=== PATIENT | female | born 1995 | race Caucasian/White ===

== ENCOUNTER 2016-11-28 18:17 | Emergency (ER) | payer MEDICAID ==
[~2016-11-28] VITALS: Ht 167.6 cm; Wt 68.2 kg
[2016-11-28 18:19] VITALS: BP 133/85; PULSE 65; TEMP 98.1
== END 2016-11-28 19:20 | disposition home or self-care (01) ==
LOC: COL.ER 18:17
DX: S86.819A Strain of other muscle(s) and tendon(s) at lower leg level, unspecified leg, initial encounter (principal); F17.210 Nicotine dependence, cigarettes, uncomplicated; X50.1XXA Overexertion from prolonged static or awkward postures, initial encounter; Y92.009 Unspecified place in unspecified non-institutional (private) residence as the place of occurrence of the external cause
CPT/HCPCS: L1830

== ENCOUNTER 2016-12-26 21:45 | Emergency (ER) | payer SELFPAY ==
[~2016-12-26] VITALS: Ht 165.1 cm; Wt 68.2 kg
[2016-12-26 21:51] VITALS: BP 139/83; TEMP 98.7
[2016-12-26] MEDS ORDERED: AMOXICILLIN875 MG PO (22:18)
[2016-12-26 22:26] VITALS: PULSE 62
== END 2016-12-26 22:27 | disposition home or self-care (01) ==
LOC: COL.ER 21:45
DX: K02.9 Dental caries, unspecified (principal); J45.909 Unspecified asthma, uncomplicated; F17.210 Nicotine dependence, cigarettes, uncomplicated